=== PATIENT | female | born 1950 | race Caucasian/White ===

== ENCOUNTER 2024-11-01 09:31 | Day surgery (SDC) | payer OTHER, MEDICAID ==
[2024-10-31 11:31] VITALS: BMI 26.5
[2024-11-01 10:33] LABS: Hematocrit 41.9 % (34.9-44.5); Hemoglobin 13.7 g/dL (12.0-15.5)
[2024-11-01 10:51] LABS: Anion Gap 14 mmol/L (10-20); BUN (Urea Nitrogen) 27 mg/dL (9.8-20.1); Calc. Creatinine Clearance 43 mL/min (70-130); Carbon Dioxide 23 mmol/L (23-31); Chloride 109 mmol/L (98-107); Estimated GFR 51; Glucose 166 mg/dL (83-110); Potassium 4.1 mmol/L (3.5-5.1); Sodium 142 mmol/L (136-145)
[2024-11-01] MEDS ORDERED: Scopolamine 1 mg/72 hour Patch ONE (11:22)
[2024-11-01] MEDS ORDERED: Lidocaine 1% PF 5 ML VIAL ONE (11:35)
[2024-11-01] MEDS ORDERED: PROPOFOL 20 ML ONE (11:35)
[2024-11-01] MEDS ORDERED: Fentanyl 100 MCG/2 ML VIAL ONE (11:35)
[2024-11-01] MEDS ORDERED: Dexamethasone 4 mg/ml Vial ONE (11:35)
[2024-11-01] MEDS ORDERED: Ondansetron PF 4 MG/2 ML Vial ONE ×2 (11:35→13:54)
[2024-11-01] MEDS ORDERED: Mupirocin 2% Ointment 22 GM Tube ONE (11:42)
[2024-11-01] MEDS ORDERED: Lidocaine 1% w/Epinephrine 1:200K 30 ML VIAL ONE (11:54)
[2024-11-01] MEDS ORDERED: Rocuronium Bromide 10 MG/ML (10ML VIAL) ONE (12:00)
[2024-11-01] MEDS ORDERED: MINERAL OIL/WHITE PETROLATUM 3.5 GM TUBE ONE (12:01)
[2024-11-01] MEDS ORDERED: ePHEDrine Sulfate 50 MG/10 ML VIAL ONE (12:28)
[2024-11-01] MEDS ORDERED: Glycopyrrolate 0.2 MG/ML 5 ML SYRINGE ONE (12:30)
[2024-11-01] MEDS ORDERED: SUGAMMADEX SODIUM 200 MG/2 ML VIAL ONE (13:29)
[2024-11-01] MEDS ORDERED: fentaNYL 50 mcg/mL 1 mL Vial ONE (13:40)
[2024-11-01] MEDS ORDERED: HYDROmorphone 0.5 MG/0.5 ML SYRINGE ONE (13:49)
[2024-11-01] MEDS ORDERED: Promethazine HCl 25 MG/ML VIAL ONE (14:12)
[2024-11-01] MEDS ORDERED: hydrALAZINE 20 MG/ML VIAL ONE (14:32)
== END 2024-11-01 16:00 | disposition home or self-care (01) ==
LOC: CSHSDC 09:31
PROVIDERS: ATTEND Otolaryngology Otolaryngic Allergy
PROC: 0HB1XZZ Excision of Face Skin, External Approach (ICD-10-PCS; principal; 2024-11-01)
PROC: 0H81XZZ Division of Face Skin, External Approach (ICD-10-PCS; 2024-11-01)
DX: C44.319 Basal cell carcinoma of skin of other parts of face (principal); C44.311 Basal cell carcinoma of skin of nose; I10 Essential (primary) hypertension; I48.91 Unspecified atrial fibrillation; I25.10 Atherosclerotic heart disease of native coronary artery without angina pectoris; E11.9 Type 2 diabetes mellitus without complications; E78.5 Hyperlipidemia, unspecified; Z95.1 Presence of aortocoronary bypass graft; Z88.0 Allergy status to penicillin; Z88.5 Allergy status to narcotic agent; Z79.899 Other long term (current) drug therapy
CPT/HCPCS: 11642; 12052; 15630; 80048; 85014; 85018; 93005; J0360; J1100; J1171; J2405; J2550; J2704; J3010 ×2; 36415; 88305; 88331; 88332; 93010